=== PATIENT | female | born 1985 | race Caucasian/White ===

== ENCOUNTER 2016-11-01 13:44 | Emergency (ER) | payer OTHER, MEDICAID ==
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
[2016-11-01] MEDS ORDERED: ACETAMINOPHEN 325 MG TABLET PO ONE (15:43)
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
[2016-11-01] MEDS ORDERED: HYDROCODONE/ACETAMINOPHEN 5-325 MG 6 TAB/DSPK PO PRN (17:18)
[2016-11-01 17:45] VITALS: BP 133/89
== END 2016-11-01 17:40 | disposition home or self-care (01) ==
LOC: ER 13:44
DX: S93.401A Sprain of unspecified ligament of right ankle, initial encounter (principal); S49.92XA Unspecified injury of left shoulder and upper arm, initial encounter; M54.2 Cervicalgia; M25.512 Pain in left shoulder; M79.602 Pain in left arm; R07.89 Other chest pain; R51 Headache; V48.5XXA Car driver injured in noncollision transport accident in traffic accident, initial encounter; Y92.89 Other specified places as the place of occurrence of the external cause; R55 Syncope and collapse; J45.909 Unspecified asthma, uncomplicated; E11.9 Type 2 diabetes mellitus without complications
CPT/HCPCS: 99284; 73600; 71111; 70450; 73030; L4350

== ENCOUNTER 2017-11-08 11:47 | Emergency (ER) | payer SELFPAY ==
[2017-11-08] MEDS ORDERED: DEXAMETHASONE SOD PHOS INJ 10 MG/1 ML VIAL IV ONE (12:19)
[2017-11-08] MEDS ORDERED: KETOROLAC TROMETHAMINE INJ/PF 30 MG/1 ML SDV IV ONE (12:19)
--- NOTE | 2017-11-08 12:23 | ER Document Report ---
ED ENT - General Chief Complaint: Sore Throat Stated Complaint: SORE THROAT Time Seen by Provider: 11/08/17 12:07 Mode of Arrival: Ambulatory Information source: Patient Notes: 32-year-old female presents to ED for complaint of sore throat times 2 days. She states her neck is so swollen and tender that she cannot eat or drink. She states she is on her menstrual cycle right now. Patient is alert and oriented respirations are regular nonlabored speaking with a muffled voice. Patient has significant lymphadenopathy bilateral. TRAVEL OUTSIDE OF THE [place] IN LAST 30 DAYS: No - HPI Patient complains to provider of: Nose problem, Throat problem Onset: Other Onset/Duration: Gradual - 2 days Quality of pain: Sharp Severity: Severe Pain Level: 5 Location of pain: Sinus, Throat Associated symptoms: Difficulty swallowing, Runny nose, Sore throat, Swollen glands Similar symptoms previously: No Recently seen / treated by doctor: No - Related Data Allergies/Adverse Reactions: No Known Allergies Allergy (Verified 11/01/16 13:48) Past Medical History - General Information source: Patient - Social History Smoking Status: Never Smoker Cigarette use (# per day): No Chew tobacco use (# tins/day): No Smoking Education Provided: No Frequency of alcohol use: Occasional Drug Abuse: None Lives with: Parents Family History: Arthritis, CAD, COPD, CVA, Hyperlipidemia, Hypertension, Thyroid Disfunction Patient has suicidal ideation: No Patient has homicidal ideation: No - Past Medical History Cardiac Medical History: Reports: None Pulmonary Medical History: Reports: Hx Asthma EENT Medical History: Reports: None Neurological Medical History: Reports: Hx Migraine Endocrine Medical History: Reports: Hx Diabetes Mellitus Type 2 Renal/ Medical History: Reports: None Malignancy Medical History: Reports: None GI Medical History: Reports: None Musculoskeletal Medical History: Reports Hx Arthritis, Reports Hx Musculoskeletal Deformity Skin Medical History: Reports None Psychiatric Medical History: Reports: Hx Anxiety, Hx Attention Deficit Hyperactivity Disorder, Hx Bipolar Disorder, Hx Depression Traumatic Medical History: Reports: None Infectious Medical History: Reports: None Past Surgical History: Reports: Hx Orthopedic Surgery - Carpal tunnel release - Immunizations Hx Diphtheria, Pertussis, Tetanus Vaccination: Yes Review of Systems - Review of Systems Constitutional: Recent illness EENT: Throat pain, Difficulty swallowing Cardiovascular: No symptoms reported Respiratory: No symptoms reported Gastrointestinal: No symptoms reported Genitourinary: No symptoms reported Female Genitourinary: No symptoms reported Musculoskeletal: No symptoms reported Skin: No symptoms reported Hematologic/Lymphatic: No symptoms reported Neurological/Psychological: No symptoms reported, Sensory change Physical Exam - Vital signs Vitals: Temp Pulse Resp BP Pulse Ox 98.5 F 87 14 140/103 H 97 11/08/17 11:59 11/08/17 11:59 11/08/17 11:59 11/08/17 11:59 11/08/17 11:59 Interpretation: Normal - General General appearance: Appears well, Alert - HEENT Head: Normocephalic, Atraumatic Eyes: Normal Pupils: PERRL Ears: Other - Multiple little open sores were patient states she has popped blackheads External canal: Normal Tympanic membrane: Normal Sinus: Normal Nasal: Swelling, Clear rhinorrhea Mouth/Lips: Normal Mucous membranes: Normal Pharynx: Exudate, Post nasal drainage, Tonsillar hypertrophy Neck: Anterior cervical chain, Posterior cervical chain - Respiratory Respiratory status: No respiratory distress Chest status: Nontender Breath sounds: Normal Chest palpation: Normal - Cardiovascular Rhythm: Regular Heart sounds: Normal auscultation Murmur: No - Abdominal Inspection: Normal Distension: No distension Bowel sounds: Normal Tenderness: Nontender Organomegaly: No organomegaly - Back Back: Normal, Nontender - Extremities General upper extremity: Normal inspection, Nontender, Normal color, Normal ROM , Normal temperature General lower extremity: Normal inspection, Nontender, Normal color, Normal ROM , Normal temperature, Normal weight bearing. No: Darlene's sign - Neurological Neuro grossly intact: Yes Cognition: Normal Orientation: AAOx4 [place] Coma Scale Eye Opening: Spontaneous Dedra Coma Scale Verbal: Oriented Dedra Coma Scale Motor: Obeys Commands [place] Coma Scale Total: 15 Speech: Normal Motor strength normal: LUE, RUE, LLE, RLE Sensory: Normal - Psychological Associated symptoms: Normal affect, Normal mood - Skin Skin Temperature: Warm Skin Moisture: Dry Skin Color: Normal Course - Re-evaluation Re-evalutation: 11/08/17 12:[address] Lopez who came over and examined the patient he agrees patient needs a soft tissue contrasted CT of the soft tissue neck. Patient has been treated with Toradol Decadron and IV fluids. Strep is negative we will run a Monospot. 11/08/17 14:[address] Noble ENT. Who stated this is a much more extensive infection then he can treat here locally that patient needs to be transferred to a tertiary hospital. He recommended starting Unasyn and Rocephin immediately. Patient is already been treated with Toradol and Decadron. Patient is n.p.o. 11/08/17 15:34 I contacted [facility] transfer lines. I spoke with Doctor Jurado his nose and throat doctor who stated he did not understand why an ENT would not I& D a peritonsillar abscess. I explained to him that she also had a retroperitoneal fluid there was going from C 2 down to C5-6. He stated that the patient would need to be transferred to the ED and have the ED doctor page him. I then spoke with the transfer line who contacted who accepted the patient for ED to ED transfer. 11/08/17 16:24 Transportation is present to transfer patient to [facility]. Patient is stable at this time. She does states she still having some pain in her throat. 2 mg of morphine IV was ordered before transportation. Patient will be transferred to [facility] ED to ED. - Vital Signs Vital signs: Temp Pulse Resp BP Pulse Ox 98.6 F 84 16 136/90 H 96 11/08/17 15:48 11/08/17 15:48 11/08/17 15:48 11/08/17 15:48 11/08/17 15:48 - Laboratory Result Diagrams: 11/08/17 12:40 Laboratory results interpreted by me: 11/08/17 12:40 WBC 12.5 H Seg Neutrophils % 84.7 H Lymphocytes % 7.7 L Absolute Neutrophils 10.6 H - Diagnostic Test Radiology reviewed: Image reviewed, Reports reviewed Discharge - Discharge Clinical Impression: Peritonsillar abscess, Retropharyngeal abscess Disposition: [facility] Referrals: SUSAN GONZALES MD [Primary Care Provider] - Follow up as needed
[2017-11-08 12:57] LABS: ABSOLUTE BASOPHILS # (AUTO) 0.1 10^3/uL (0.0-0.2); ABSOLUTE EOSINOPHILS # (AUTO) 0.1 10^3/uL (0.0-0.6); ABSOLUTE MONOCYTES (AUTO) 0.8 10^3/uL (0.1-1.4); ABSOLUTE NEUT (AUTO) 10.6 10^3/uL (1.7-8.2); BASOPHILS % (AUTO) 0.4 % (0-2); EOSINOPHILS % (AUTO) 0.6 % (0-6); HEMATOCRIT 38.7 % (36.0-47.0); HEMOGLOBIN 13.2 g/dL (12.0-15.5); LYMPHOCYTES % (AUTO) 7.7 % (13-45); MEAN CORPUSCULAR HEMOGLOBIN 31.5 pg (27.0-33.4); MEAN CORPUSCULAR VOLUME 93 fl (80-97); MONOCYTES % (AUTO) 6.6 % (3-13); PLATELET COUNT 278 10^3/uL (150-450); RED BLOOD COUNT 4.18 10^6/uL (3.72-5.28); RED CELL DISTRIBUTION WIDTH 13.5 % (11.5-14.0); SEGMENTED NEUTROPHILS % (AUTO) 84.7 % (42-78); TOTAL CELLS COUNTED % (AUTO) 100 %; WHITE BLOOD COUNT 12.5 10^3/uL (4.0-10.5)
--- NOTE | 2017-11-08 14:33 | RADIOLOGY REPORT (SQ) ---
EXAM DESCRIPTION: CT SOFT TISSUE NECK WITH COMPLETED DATE/TIME: 11/08/2017 2:10 pm REASON FOR STUDY: pain swelling to throat and neck COMPARISON: MRI CERVICAL SPINE 05/27/2008 CT FACIAL BONES 09/23/2008 CT BRAIN 11/01/2016 TECHNIQUE: Post IV contrasted scanning from skull base through lung apices with review of bone, soft tissue and lung windows. Reconstructed coronal and sagittal MPR images reviewed. All images stored on PACS. All CT scanners at this facility use dose modulation, iterative reconstruction, and/or weight based d osing when appropriate to reduce radiation dose to as low as reasonably achievable (ALARA). [facility]: Dose Right [facility]: CareDose [facility]: Dose Right [facility]: Teradose 4D [facility]: Payoneer CONTRAST TYPE AND DOSE: contrast/concentration: Isovue 350.00 mg/ml; Total Contrast Delivered: 75.0 ml; Total Saline Delivered: 55.0 ml RENAL FUNCTION: None required. The patient is less than 50 years old. RADIATION DOSE: CT Rad equipment meets quality standard of care and radiation dose reduction techniq ues were employed. CTDIvol: 13.1 mGy. DLP: 410 mGy-cm. . LIMITATIONS: None. FINDINGS: The right pharyngeal tonsil is enlarged, 4.5 cm craniocaudad by 2.6 cm transverse by 2.2 c m AP. Along the inferior aspect of the pharyngeal tonsil, an intra tonsillar abscess is present measuring 1 .7 x 0.8 cm in size, best shown on axial image 49, coronal image 26-28, and sagittal images 37-38. There is blurring of the fat planes in the right parapharyngeal space inflammation. The inflammation /cellulitis extends into the right submandibular triangle. There is diffuse prevertebral space fluid, from the mid C2 level down through the C5-6 level. Asymmetric rightward epiglottic soft tissue swelling is present extending into the right aryepiglotti c fold. There is moderate airway narrowing at the level of the oropharynx. These findings were called to Dr. José emergency room. SKULL BASE: Inferior brain parenchyma unremarkable MAJOR SALIVARY GLANDS: Normal size. No masses LYMPHADENOPATHY: Right Jugulodigastric 3.2 x 1.8 cm lymph node. MUCOSAL MASSES OR ASYMMETRY: As above LARYNX/CORDS: As above VASCULAR STRUCTURES: The major vessels are patent. LUNG APICES: Clear. BONES: Intact. THYROID: Normal size. No masses. PARANASAL SINUSES: Clear. OTHER: No other significant finding. IMPRESSION: The right pharyngeal tonsillitis with 1.7 x 0.8 cm abscess at the lower pole right tonsi l, either a small intra tonsillar or peritonsillar abscess. Regional cellulitis extends into the rig ht submandibular triangle. Prevertebral space fluid is present from C2 through C5-6. There is mucosal edema along the rightward epiglottis, aryepiglottic fold. Moderate airway narrowing in the oropharynx TECHNICAL DOCUMENTATION: JOB ID: [id number] Quality ID # [id number]: Final reports with documentation of one or more dose reduction techniques (e.g., Au tomated exposure control, adjustment of the mA and/or kV according to patient size, use of iterative reconstruction technique) 2010 [employer] All Rights Reserved Reading location - IP/workstation name: [facility]
[2017-11-08] MEDS ORDERED: MORPHINE SULFATE 10 MG/ML INJ IV ONE ×2 (14:40→16:23)
[2017-11-08] MEDS ORDERED: NORMAL SALINE 1000 ML 1,000 ML IV ONE ×2 (14:40)
[2017-11-08] MEDS ORDERED: CEFTRIAXONE 2 GM/D5W RTU 2 GM/50 ML RTUPB IV ONE (14:41)
[2017-11-08] MEDS ORDERED: AMPICILLIN SOD/SULBACTAM 3 GM VIAL IV ONE (14:41)
[2017-11-08 15:52] VITALS: BP 136/90
[2017-11-08] MEDS ORDERED: CEFTRIAXONE SODIUM 2,000 MG in DEXTROSE 5%-WATER 100 ML IV ONE (16:00)
== END 2017-11-08 16:38 | disposition short-term general hospital (02) ==
LOC: ER 11:47
DX: J36 Peritonsillar abscess (principal); J02.9 Acute pharyngitis, unspecified; E11.9 Type 2 diabetes mellitus without complications
CPT/HCPCS: 96376; 99285; 96361; 96375; 96365; 36415; 87040; 87070; 87880; 84702; 85025; 86308; 70491; J0295; J1885; J2270; J7030; J1100; J0696

== ENCOUNTER 2018-12-03 14:36 | Emergency (ER) | payer SELFPAY ==
[2018-12-03 14:49] VITALS: BP 142/98
[2018-12-03] MEDS ORDERED: CLINDAMYCIN HCL 150 MG CAPSULE PO ONE (15:04)
[2018-12-03] MEDS ORDERED: HYDROCODONE/ACETAMINOPHEN 5-325 MG TABLET PO ONE (15:04)
[2018-12-03] MEDS ORDERED: CIPROFLOXACIN HCL/DEXAMETH OTIC DROP 7.5 ML AS ONE (15:05)
--- NOTE | 2018-12-03 15:10 | ER Document Report ---
HPI - HPI Time Seen by Provider: 12/03/18 14:49 Context: Patient is a 33-year-old female who presents emerged department with a chief complaint of left ear pain. Patient states that about 2 days ago she had pain and she noticed that she had some drainage from her left ear. Patient has a history of MRSA. - ROS Systems Reviewed and Negative: Yes All other systems reviewed and negative - CONSTITUTIONAL Constitutional: DENIES: Fever, Chills - EENT EENT: REPORTS: Ear Pain - Left. DENIES: Sore Throat, Nasal Drainage-Clear, Nasal Drainage-Purulent, Congestion, Eye problems - NEURO Neurology: DENIES: Headache - RESPIRATORY Respiratory: DENIES: Coughing - REPRODUCTIVE Reproductive: DENIES: : Past Medical History - General Information source: Patient - Social History Smoking Status: Never Smoker Family History: Arthritis, CAD, COPD, CVA, Hyperlipidemia, Hypertension, Thyroid Disfunction Pulmonary Medical History: Reports: Hx Asthma Neurological Medical History: Reports: Hx Migraine Endocrine Medical History: Reports: Hx Diabetes Mellitus Type 2 Renal/ Medical History: Denies: Hx Peritoneal Dialysis Musculoskeletal Medical History: Reports Hx Arthritis, Reports Hx Musculoskeletal Deformity Psychiatric Medical History: Reports: Hx Anxiety, Hx Attention Deficit Hyperactivity Disorder, Hx Bipolar Disorder, Hx Depression Past Surgical History: Reports: Hx Orthopedic Surgery - Carpal tunnel release - Immunizations Hx Diphtheria, Pertussis, Tetanus Vaccination: Yes Vertical Provider Document - CONSTITUTIONAL Agree With Documented VS: Yes Exam Limitations: No Limitations General Appearance: No Apparent Distress - INFECTION CONTROL TRAVEL OUTSIDE OF THE [place] IN LAST 30 DAYS: No - HEENT HEENT: Atraumatic, Normocephalic, PERRLA, Tympanic Membrane Red - Left, Tympanic Membrane Bulging - Left - RESPIRATORY Respiratory: No Respiratory Distress - CARDIOVASCULAR Cardiovascular: Regular Rate, Regular Rhythm - MUSCULOSKELETAL/EXTREMETIES Musculoskeletal/Extremeties: FROM - NEURO Level of Consciousness: Awake, Alert, Appropriate - DERM Integumentary: Warm, Dry, No Rash Course - Re-evaluation Re-evalutation: 12/03/18 15:10 Patient's physical exam and history is consistent with otitis externa. Patient will be placed on Ciprodex drops. I do not suspect patient has mastoiditis, as there is no pain at the mastoid process. She also be placed on clindamycin to cover MRSA, since she has a history of MRSA. [facility]. Follow-up precautions were given. Verbal discharge instructions were given to the patient. They verbalized understanding. They are stable for discharge. - Vital Signs Vital signs: Temp Pulse Resp BP Pulse Ox 98.3 F 71 16 142/98 H 98 12/03/18 14:46 12/03/18 14:46 12/03/18 14:46 12/03/18 14:46 12/03/18 14:46 Discharge - Discharge Clinical Impression: Otitis externa Qualifiers: Otitis externa type: other infective Chronicity: acute Laterality: left Qualified Code(s): H60.392 - Other infective otitis externa, left ear Otitis media Qualifiers: Otitis media type: mucoid Chronicity: acute Laterality: left Qualified Code(s): H65.112 - Acute and subacute allergic otitis media (mucoid) (sanguinous) (serous), left ear Condition: Stable Disposition: HOME, SELF-CARE Instructions: Otitis Externa ([facility]) Additional Instructions: You are seen today in the emergency department for left ear pain. You are being placed on clindamycin, medication to help with the infection in your left ear. You are also being given Ciprodex, eardrops. Place 4 drops to your left ear twice a day for 7 days. Follow-up with 1 of the clinics below. If your symptoms are worse, please return to the emergency department. Prescriptions: Clindamycin HCl [Cleocin 150 mg Capsule] 300 mg PO Q6 7 Days #56 capsule Referrals: [facility] [Provider Group] - Follow up in 3-5 days [facility] [Provider Group] - Follow up in 3-5 days
== END 2018-12-03 15:31 | disposition home or self-care (01) ==
LOC: ER 14:36
DX: H60.392 Other infective otitis externa, left ear (principal); H65.112 Acute and subacute allergic otitis media (mucoid) (sanguinous) (serous), left ear; E11.9 Type 2 diabetes mellitus without complications; Z86.14 Personal history of Methicillin resistant Staphylococcus aureus infection
CPT/HCPCS: 99282; J3490

== ENCOUNTER 2019-08-15 11:36 | Emergency (ER) | payer SELFPAY ==
[2019-08-15 11:46] VITALS: BP 135/93
--- NOTE | 2019-08-15 12:06 | ER Document Report ---
ED Medical Screen (RME) - General Chief Complaint: Other Stated Complaint: IRRITATION/BIKINI AREA Time Seen by Provider: 08/15/19 12:05 Information source: Patient Notes: This 34-year-old female presented to the emergency room today stating that she had an ingrown hair on her labia which is gotten very large inflamed and infected she states it is approximately 3 inches in circumference. TRAVEL OUTSIDE OF THE [place] IN LAST 30 DAYS: No - Related Data Allergies/Adverse Reactions: No Known Allergies Allergy (Verified 08/15/19 12:04) Past Medical History Pulmonary Medical History: Reports: Hx Asthma Neurological Medical History: Reports: Hx Migraine Endocrine Medical History: Reports: Hx Diabetes Mellitus Type 2 Renal/ Medical History: Denies: Hx Peritoneal Dialysis Musculoskeltal Medical History: Reports Hx Arthritis, Reports Hx Musculoskeletal Deformity Psychiatric Medical History: Reports: Hx Anxiety, Hx Attention Deficit Hyperactivity Disorder, Hx Bipolar Disorder, Hx Depression Past Surgical History: Reports: Hx Orthopedic Surgery - Carpal tunnel release - Immunizations Hx Diphtheria, Pertussis, Tetanus Vaccination: Yes Physical Exam - Vital signs Vitals: Temp Pulse Resp BP Pulse Ox 98.4 F 102 H 18 135/93 H 97 08/15/19 11:44 08/15/19 11:44 08/15/19 11:44 08/15/19 11:44 08/15/19 11:44 - Genitourinary External exam: Other - Exam deferred based on the fact it were in triage Course - Vital Signs Vital signs: Temp Pulse Resp BP Pulse Ox 98.4 F 102 H 18 135/93 H 97 08/15/19 11:44 08/15/19 11:44 08/15/19 11:44 08/15/19 11:44 08/15/19 11:44
[2019-08-15 12:43] LABS: ABSOLUTE EOSINOPHILS # (AUTO) 0.1 10^3/uL (0.0-0.6); ABSOLUTE LYMPHOCYTES (AUTO) 0.8 10^3/uL (0.5-4.7); ABSOLUTE MONOCYTES (AUTO) 0.6 10^3/uL (0.1-1.4); ABSOLUTE NEUT (AUTO) 7.1 10^3/uL (1.7-8.2); BASOPHILS % (AUTO) 0.2 % (0-2); HEMATOCRIT 41.3 % (36.0-47.0); HEMOGLOBIN 14.2 g/dL (12.0-15.5); LYMPHOCYTES % (AUTO) 9.5 % (13-45); MEAN CORPUSCULAR HEMOGLOBIN 32.5 pg (27.0-33.4); MEAN CORPUSCULAR HGB CONC 34.3 g/dL (32.0-36.0); MEAN CORPUSCULAR VOLUME 95 fl (80-97); MONOCYTES % (AUTO) 6.5 % (3-13); PLATELET COUNT 255 10^3/uL (150-450); RED BLOOD COUNT 4.36 10^6/uL (3.72-5.28); RED CELL DISTRIBUTION WIDTH 13.9 % (11.5-14.0); SEGMENTED NEUTROPHILS % (AUTO) 82.8 % (42-78); TOTAL CELLS COUNTED % (AUTO) 100 %; WHITE BLOOD COUNT 8.6 10^3/uL (4.0-10.5)
[2019-08-15 12:59] LABS: ALBUMIN 4.1 g/dL (3.5-5.0); ALKALINE PHOSPHATASE 66 U/L (38-126); ASPARTATE AMINO TRANSFERASE 19 U/L (14-36); BILIRUBIN,TOTAL 0.8 mg/dL (0.2-1.3); BLOOD UREA NITROGEN 10 mg/dL (7-20); CALCIUM 9.3 mg/dL (8.4-10.2); CHLORIDE 101 mmol/L (98-107); GLUCOSE 106 mg/dL (75-110); POTASSIUM 4.2 mmol/L (3.6-5.0); TOTAL PROTEIN 7.1 g/dL (6.3-8.2)
[2019-08-15 13:02] LABS: APPEARANCE,URINE SLIGHTLY-CLOUDY; BILIRUBIN,URINE NEGATIVE (NEGATIVE); COLOR,URINE YELLOW; GLUCOSE, URINE NEGATIVE (NEGATIVE); KETONES,URINE TRACE mg/dL (NEGATIVE); LEUKOCYTE ESTERASE,URINE NEGATIVE (NEGATIVE); NITRITE,URINE NEGATIVE (NEGATIVE); PROTEIN,URINE NEGATIVE (NEGATIVE); URINE SPECIFIC GRAVITY 1.023; UROBILINOGEN,URINE NEGATIVE mg/dL (<2.0)
[2019-08-15 13:04] LABS: CARBON DIOXIDE 34 mmol/L (22-30)
[2019-08-15 13:12] LABS: ANION GAP 4 (5-19)
[2019-08-15] MEDS ORDERED: HYDROCODONE/ACETAMINOPHEN 5-325 MG (6 TAB/ER DISP) PO PRN (15:58)
[2019-08-15] MEDS ORDERED: ONDANSETRON 4 MG TAB.RAPDIS PO ONE (15:58)
[2019-08-15] MEDS ORDERED: SULFAMETHOXAZOLE/TRIMETHOPRIM 800-160 MG TABLET PO ONE (15:58)
[2019-08-15] MEDS ORDERED: LIDOCAINE 1%/EPINEPHRINE INJ 20 ML VIAL INJ ONE (15:58)
[2019-08-15] MEDS ORDERED: LIDOCAINE 1% INJ-PF (10 MG/ML) 30 ML SDV INJ ONE (15:59)
--- NOTE | 2019-08-15 16:01 | ER Document Report ---
ED General - General Chief Complaint: Skin Problem Stated Complaint: IRRITATION/BIKINI AREA Time Seen by Provider: 08/15/19 12:05 Notes: Patient is a 34-year-old white female with a past medical history of MRSA who presents to the emergency department the chief complaint of suspected abscess formation to the suprapubic region that began a few days ago. She states it started as a small area has an ingrown hair. She states she tried to squeeze the hair out and then attempted to take a hot needle that she "sterilized" utilizing burning the needle prior and then poked the area trying to drain it. She states this was unsuccessful and since that time the area has worsened. She states there is a centralized area of swelling where there was some mild drainage. She reports the erythema is expanding from the central area to the bilateral suprapubic regions. She denies any fever but complains of tenderness and pain in the area. No dysuria, vaginal discharge or bleeding. Denies . Denies any fever, chills or night sweats. TRAVEL OUTSIDE OF THE [place] IN LAST 30 DAYS: No - Related Data Allergies/Adverse Reactions: No Known Allergies Allergy (Verified 08/15/19 12:04) Past Medical History - General Information source: Patient - Social History Smoking Status: Never Smoker Chew tobacco use (# tins/day): No Frequency of alcohol use: None Drug Abuse: None Family History: Arthritis, CAD, COPD, CVA, Hyperlipidemia, Hypertension, Thyroid Disfunction Patient has homicidal ideation: No Pulmonary Medical History: Reports: Hx Asthma Neurological Medical History: Reports: Hx Migraine Endocrine Medical History: Reports: Hx Diabetes Mellitus Type 2 Renal/ Medical History: Denies: Hx Peritoneal Dialysis Musculoskeletal Medical History: Reports Hx Arthritis, Reports Hx Musculoskeletal Deformity Psychiatric Medical History: Reports: Hx Anxiety, Hx Attention Deficit Hyperacti vity Disorder, Hx Bipolar Disorder, Hx Depression Past Surgical History: Reports: Hx Orthopedic Surgery - Carpal tunnel release - Immunizations Hx Diphtheria, Pertussis, Tetanus Vaccination: Yes Review of Systems - Review of Systems Constitutional: denies: Fever EENT: denies: Difficulty swallowing Cardiovascular: denies: Chest pain Respiratory: denies: Short of breath Gastrointestinal: denies: Abdominal pain Genitourinary: denies: Burning, Dysuria Female Genitourinary: denies: Irregular period Musculoskeletal: denies: Leg swelling Skin: Lesions Hematologic/Lymphatic: denies: Easy bleeding Neurological/Psychological: denies: Lost consciousness Physical Exam - Vital signs Vitals: Temp Pulse Resp BP Pulse Ox 98.4 F 102 H 18 135/93 H 97 08/15/19 11:44 08/15/19 11:44 08/15/19 11:44 08/15/19 11:44 08/15/19 11:44 - General General appearance: Appears well, Alert In distress: None - Respiratory Respiratory status: No respiratory distress Chest status: Nontender Breath sounds: Normal Chest palpation: Normal - Cardiovascular Rhythm: Regular Heart sounds: Normal auscultation - Abdominal Inspection: Normal Distension: No distension Bowel sounds: Normal Tenderness: Nontender Organomegaly: No organomegaly - Genitourinary External exam: Other - External mons/pubic region with an area of abscess formation approximately 3 cm in diameter, slightly pointing centrally with obvious fluctuance and localized erythema that is slightly expanding. No proximal streaking. No drainage. Tenderness to palpation. Chaperoned by female nurse - Neurological Neuro grossly intact: Yes Cognition: Normal Orientation: AAOx4 - Psychological Associated symptoms: Normal affect, Normal mood - Skin Skin Color: Other - Normal except the area described above in the exam Course - Vital Signs Vital signs: Temp Pulse Resp BP Pulse Ox 98.4 F 102 H 18 135/93 H 97 08/15/19 11:44 08/15/19 11:44 08/15/19 11:44 08/15/19 11:44 08/15/19 11:44 - Laboratory Result Diagrams: 08/15/19 12:10 08/15/19 12:10 Laboratory results interpreted by me: 08/15/19 08/15/19 08/15/19 12:10 12:10 12:10 Lymph % (Auto) 9.5 L Seg Neutrophils % 82.8 H Carbon Dioxide 34 H Anion Gap 4 L Urine Ketones TRACE H Procedures - Incision and Drainage Groin Time completed: 17:01 Anesthetic type: 1% Lidocaine w/epi mL's of anesthetic: 5 Blade size: 11 I&D procedure: Betadine prep applied Incision Method: Incision made by scalpel Amount/type of drainage: Small purulent bloody Notes: 08/15/19 17:02 Patient tolerated well 08/15/19 17:02 Entire procedure from start to finish chaperoned by the female nurse. Discharge - Discharge Clinical Impression: Pelvic abscess Condition: Stable Disposition: HOME, SELF-CARE Instructions: Post Incision and Drainage, Trimethoprim-Sulfa ([facility]) Additional Instructions: Follow-up with your regular doctor in 2 to 3 days for reevaluation. Return here or any ER immediately with any new, persistent or worsening symptoms. Packing removal in 2 days during your wound recheck. Prescriptions: Sulfamethoxazole/Trimethoprim [Bactrim Ds Tablet] 1 each PO BID #19 tablet
== END 2019-08-15 17:17 | disposition home or self-care (01) ==
LOC: ER 11:36
DX: N73.9 Female pelvic inflammatory disease, unspecified (principal); Z86.14 Personal history of Methicillin resistant Staphylococcus aureus infection
CPT/HCPCS: 99283; 36415; 85025; 80053; 81001; 10060; S0119; J3490 ×2